=== PATIENT | female | born 1940 | race Caucasian/White ===

== ENCOUNTER 2018-11-04 11:00 | Emergency (ER) | payer MEDICARE, BC ==
[2018-11-04 12:23] VITALS: BP 150/46
--- NOTE | 2018-11-04 12:53 | UC ---
Respiratory Complaint HPI - HPI Summary HPI Summary: Pt c/o cough x 2 months. Cough is inconsistent, intermittent, no nasal/chest congestion, no wheezing, chest pain, night sweats, sob or weight loss in last 6 months. Pt is a long term care social worker smoker. Also c/o scab that will not heal on right anterior alberts. - History of Current Complaint Chief Complaint: UCRespiratory Stated Complaint: COUGH, SKIN CONCERN (LEG) Time Seen by Provider: 11/04/18 12:32 Hx Obtained From: Patient ?: No Onset/Duration: Sudden Onset, Lasting Weeks, Still Present Timing: Intermittent Episodes Severity Initially: Mild Severity Currently: Mild Pain Intensity: 0 Character: Cough: Nonproductive Alleviating Factors: Nothing Associated Signs And Symptoms: Positive: Negative Related History: Seasonal Allergies - Risk Factors Pulmonary Embolism Risk Factors: Smoking Cardiac Risk Factors: Smoking Pseudomonas Risk Factors: Negative Tuberculosis Risk Factors: Smoking - Allergies/Home Medications Allergies/Adverse Reactions: Allergies Allergy/AdvReac Type Severity Reaction Status Date / Time No Known Allergies Allergy Verified 11/04/18 12:23 PMH/Surg Hx/FS Hx/Imm Hx Previously Healthy: Yes Endocrine History: Dyslipidemia - Surgical History Surgical History: Yes Surgery Procedure, Year, and Place: veins - Family History Known Family History: Positive: Cardiac Disease - Social History Occupation: Retired Lives: With Family Alcohol Use: Rare Substance Use Type: None Smoking Status (MU): Light Every Day Tobacco Smoker Type: Cigarettes Amount Used/How Often: 5 cigarettes daily Length of Time of Smoking/Using Tobacco: 60 years Have You Smoked in the Last Year: Yes Household Exposure Type: Cigarettes - Immunization History Most Recent Influenza Vaccination: 07/2014 Review of Systems All Other Systems Reviewed And Are Negative: Yes Constitutional: Positive: Negative Skin: Positive: Negative Eyes: Positive: Negative ENT: Positive: Negative Respiratory: Positive: Cough Cardiovascular: Positive: Negative Gastrointestinal: Positive: Negative Genitourinary: Positive: Negative Motor: Positive: Negative Neurovascular: Positive: Negative Musculoskeletal: Positive: Negative Neurological: Positive: Negative Psychological: Positive: Negative Is Patient Immunocompromised?: No Physical Exam Triage Information Reviewed: Yes Appearance: Well-Appearing Vital Signs: Initial Vital Signs Temp 98.4 F 11/04/18 12:19 Pulse 95 11/04/18 12:19 Resp 18 11/04/18 12:19 BP 150/46 11/04/18 12:19 Pulse Ox 100 11/04/18 12:19 Vital Signs Reviewed: Yes Eye Exam: Normal ENT Exam: Normal Dental Exam: Normal Neck exam: Normal Respiratory: Positive: Decreased breath sounds Cardiovascular Exam: Normal Musculoskeletal Exam: Normal Neurological Exam: Normal Psychological Exam: Normal Skin Exam: Other - has raised, dried scab,dired serous fluid on right mid, anterior alberts ~ 1 cm in diameter. Diagnostic Evaluation - Laboratory O2 Sat by Pulse Oximetry: 100 Diagnostic Studies Comment: IMPRESSION: #. Stigmata of obstructive lung disease. No acute pulmonary or cardiac process evident. - Radiology Radiology Interpretation Completed By: Radiologist Respiratory Course/Dx - Differential Dx/Diagnosis Differential Diagnosis/HQI/PQRI: Bronchitis, Exacerbation Of COPD Provider Diagnosis: Cough in adult, Chronic wound of extremity Discharge - Sign-Out/Discharge Documenting (check all that apply): Patient Departure All imaging exams completed and their final reports reviewed: Yes - Discharge Plan Condition: Stable Disposition: HOME Prescriptions: Benzonatate CAP* [Tessalon 100 MG CAP*] 100 mg PO Q8H PRN #15 cap PRN Reason: Cough predniSONE TAB* [Deltasone 20 MG TAB*] 20 mg PO DAILY #4 tab Patient Education Materials: Acute Wound Care (ED), Acute Cough (ED), Acute Wounds (ED) Referrals: Cesar Marie MD [Medical Doctor] - As Soon As Possible Cynthia Basurto MD [Primary Care Provider] - Madyson Cole [Medical Doctor] - As Soon As Possible - Billing Disposition and Condition Condition: STABLE Disposition: Home
== END 2018-11-04 13:42 | disposition home or self-care (01) ==
LOC: UCCORT 11:00
DX: R05 Cough (principal); S81.801A Unspecified open wound, right lower leg, initial encounter; X58.XXXA Exposure to other specified factors, initial encounter; Y92.9 Unspecified place or not applicable; F17.210 Nicotine dependence, cigarettes, uncomplicated
CPT/HCPCS: 71046; 99212; G0463

== ENCOUNTER 2019-01-31 11:19 | Emergency (ER) | payer MEDICARE, BC ==
[2019-01-31 11:50] VITALS: BP 146/79
--- NOTE | 2019-01-31 12:04 | UC ---
Shoulder Pain HPI - HPI Summary HPI Summary: left shoulder pain x 3 weeks pain dull and achy , 5 out of 7 , no radiation better with rest, worse with movement and lifting no known injury - History of Current Complaint Chief Complaint: UCUpperExtremity Stated Complaint: LEFT SHOULDER PAIN Time Seen by Provider: 01/31/19 11:49 Hx Obtained From: Patient Onset/Duration: Gradual Onset, Lasting Weeks - 3, Still Present Timing: Constant Severity Initially: Moderate Severity Currently: Moderate Location Of Pain: Is Discrete @ - left shoulder Pain Intensity: 5 Character: Dull, Aching Aggravating Factor(s): Movement, Lifting, Extension Alleviating Factor(s): Rest Associated Signs And Symptoms: Positive: Weakness. Negative: Swelling, Redness , Bruising, Fever, Numbness/Tingling - Allergies/Home Medications Allergies/Adverse Reactions: Allergies Allergy/AdvReac Type Severity Reaction Status Date / Time No Known Allergies Allergy Verified 01/31/19 11:45 Home Medications: Home Medications Aspirin EC TAB* [Ecotrin EC Low Dose 81 MG*] 1 tab DAILY 01/31/19 [History Confirmed 01/31/19] Simvastatin 1 tab QPM 01/31/19 [History Confirmed 01/31/19] PMH/Surg Hx/FS Hx/Imm Hx - Additional Past Medical History Additional PMH: high cholesterol - Surgical History Surgical History: Yes Surgery Procedure, Year, and Place: varicose veins - Family History Known Family History: Positive: Cardiac Disease - Social History Alcohol Use: Rare Substance Use Type: None Smoking Status (MU): Light Every Day Tobacco Smoker Type: Cigarettes Amount Used/How Often: 5 cigarettes daily Length of Time of Smoking/Using Tobacco: 60 years Have You Smoked in the Last Year: Yes Household Exposure Type: Cigarettes - Immunization History Most Recent Influenza Vaccination: 07/2014 Review of Systems All Other Systems Reviewed And Are Negative: Yes Constitutional: Positive: Negative Skin: Positive: Negative Eyes: Positive: Negative ENT: Positive: Negative Respiratory: Positive: Negative Musculoskeletal: Positive: Arthralgia - left shoulder pain Is Patient Immunocompromised?: No Physical Exam Triage Information Reviewed: Yes Appearance: Well-Appearing, No Pain Distress, Well-Nourished Vital Signs: Initial Vital Signs Temp 98.4 F 01/31/19 11:47 Pulse 81 01/31/19 11:47 Resp 16 04/09/19 11:47 BP 146/79 01/31/19 11:47 Pulse Ox 100 01/31/19 11:47 Vital Signs Reviewed: Yes Eye Exam: Normal Eyes: Positive: Conjunctiva Clear ENT: Positive: Normal ENT inspection, Hearing grossly normal, Pharynx normal Neck exam: Normal Respiratory: Positive: Chest non-tender, Lungs clear, Normal breath sounds Cardiovascular: Positive: RRR, No Murmur, Pulses Normal Musculoskeletal: Positive: Other: - left shoulder : no swelling, no erythema, + tenderness proximal shoulder , increase pain with flexion and extension . goo strength Diagnostics - Radiology No standard instances Radiology Interpretation Completed By: Radiologist Summary of Radiographic Findings: left shoulder xray : REPORT AND IMPRESSION: # . Negative for fracture or suspicious focal osseous lesions. #. Normal acromioclavicular and glenohumeral joint alignment. #. 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 acromial bone spur. #. Reactive sclerosis and cystic change at the greater tuberosity of the humerus. typically seen in association with chronic rotator cuff pathology. # . Preserved glenohumeral joint space. #. Negative for calcific tendinopathy or abnormal soft tissue contour. Shoulder Course/Dx - Differential Dx/Diagnosis Provider Diagnosis: Tendonitis of shoulder, left Discharge - Sign-Out/Discharge Documenting (check all that apply): Patient Departure All imaging exams completed and their final reports reviewed: Yes - Discharge Plan Condition: Stable Disposition: HOME Prescriptions: Naproxen [Naproxen 500 mg tab] 500 mg PO BID #20 tablet Patient Education Materials: Tendinitis (ED), Shoulder Pain (ED) Referrals: Cynthia Basurto MD [Primary Care Provider] - 2 Weeks - Billing Disposition and Condition Condition: STABLE Disposition: Home
== END 2019-01-31 12:41 | disposition home or self-care (01) ==
LOC: UCCORT 11:19
DX: M75.92 Shoulder lesion, unspecified, left shoulder (principal); M19.012 Primary osteoarthritis, left shoulder; M25.512 Pain in left shoulder; E78.5 Hyperlipidemia, unspecified; Z79.82 Long term (current) use of aspirin; F17.210 Nicotine dependence, cigarettes, uncomplicated
CPT/HCPCS: 99212; G0463

== ENCOUNTER 2019-03-19 12:17 | Emergency (ER) | payer MEDICARE, BC ==
[2019-03-19 12:39] VITALS: BP 142/80
--- NOTE | 2019-03-19 12:53 | UC ---
Skin Complaint HPI - HPI Summary HPI Summary: Patient was scratched by her neighbors catJOSE ELIASD on vaciinations. 2 puncture wounds to the top of the hand, small hematoma on left hand as well. happened this morning - History of Current Complaint Chief Complaint: UCBiteInjury Time Seen by Provider: 03/19/19 12:42 Stated Complaint: CAT SCRATCH Hx Obtained From: Patient ?: No Onset/Duration: Sudden Onset, Lasting Hours Skin Exposure Onset/Duration: Hours Ago Timing: Constant Onset Severity: Mild Current Severity: Mild Pain Intensity: 0 Location: Discrete Character: Swelling, Painful Aggravating Factor(s): Touch Associated Signs & Symptoms: Positive: Bruising - Allergy/Home Medications Allergies/Adverse Reactions: Allergies Allergy/AdvReac Type Severity Reaction Status Date / Time No Known Allergies Allergy Verified 03/19/19 12:32 Home Medications: Home Medications Cholecalciferol (Vitamin D3) [Vitamin D3] 1 tab PO DAILY 03/19/19 [History Confirmed 03/19/19] Vitamin B Complex CAP* [B Complex CAP*] 1 tab PO DAILY 03/19/19 [History Confirmed 03/19/19] PMH/Surg Hx/FS Hx/Imm Hx Previously Healthy: Yes - Surgical History Surgical History: Yes Surgery Procedure, Year, and Place: varicose veins - Family History Known Family History: Positive: Cardiac Disease - Social History Alcohol Use: Rare Substance Use Type: None Smoking Status (MU): Light Every Day Tobacco Smoker Type: Cigarettes Amount Used/How Often: 5 cigarettes daily Length of Time of Smoking/Using Tobacco: 60 years Have You Smoked in the Last Year: Yes Household Exposure Type: Cigarettes - Immunization History Most Recent Influenza Vaccination: 07/2014 Review of Systems All Other Systems Reviewed And Are Negative: Yes Skin: Positive: Bruising, Other - 2 punctures Is Patient Immunocompromised?: No Physical Exam Triage Information Reviewed: Yes Appearance: Well-Appearing, Well-Nourished, Pain Distress Vital Signs: Initial Vital Signs Temp 98.4 F 03/19/19 12:34 Pulse 81 03/19/19 12:34 Resp 18 03/19/19 12:34 BP 142/80 03/19/19 12:34 Pulse Ox 96 03/19/19 12:34 Vital Signs Reviewed: Yes Eye Exam: Normal ENT Exam: Normal Dental Exam: Normal Neck exam: Normal Respiratory Exam: Normal Cardiovascular Exam: Normal Abdominal Exam: Normal Bowel Sounds: Positive: Present Musculoskeletal Exam: Normal Neurological Exam: Normal Psychological Exam: Normal Skin: Positive: Significant Lesion(s) - punctures to the dorsal side of hand, small hematoma developing Course/Dx - Course Course Of Treatment: hx obtained, exam performed ,meds reviewed, soaked hand in warm water, educated on s/s to follow up on. Started on ABX - Differential Diagnoses - Skin Complaint Differential Diagnoses: Abscess, Cellulitis, Contact Dermatitis - Diagnoses Provider Diagnosis: Puncture wound of hand, left Discharge - Sign-Out/Discharge Documenting (check all that apply): Patient Departure All imaging exams completed and their final reports reviewed: No Studies - Discharge Plan Condition: Stable Disposition: HOME Prescriptions: Amoxicillin/Clavulanate TAB* [Augmentin TAB 875*] 875 mg PO BID #20 tab Patient Education Materials: Cat Scratch Disease (ED) Referrals: Cynthia Basurto MD [Primary Care Provider] - Additional Instructions: 1. take the antibiotic as prescribed 2. Warm water soaks twice a day 3. Follow up with any increased pain, redness, red streaks up the arm or fever. - Billing Disposition and Condition Condition: STABLE Disposition: Home - Attestation Statements Provider Attestation: Per institutional requirements, I have reviewed the chart, however, I was not consulted specifically or made aware of this patient by the midlevel provider. I did not personally evaluate, interact with , or disposition this patient.
== END 2019-03-19 13:14 | disposition home or self-care (01) ==
LOC: UCCORT 12:17
DX: S61.432A Puncture wound without foreign body of left hand, initial encounter (principal); W55.03XA Scratched by cat, initial encounter; F17.210 Nicotine dependence, cigarettes, uncomplicated
CPT/HCPCS: 99212; G0463